=== PATIENT | male | born 1995 ===

== ENCOUNTER 2023-09-11 07:51 | Outpatient (OUT) | payer OTHER, SELFPAY ==
--- NOTE | 2023-09-11 07:55 | VEIN_ITS ---
Patient Name: MIKE JENSEN MR#: [id number] : 1995 Exam Date: 09/11/2023 Ordering Doctor: FRAN ASKEW RADIOLOGY REPORT PROCEDURE: FACILITY [facility] - OFFICE VISIT INITIAL COMPARISON: None. PROGRESS NOTES: [age] year old male who presents with a 3 year history of dilated bulging veins, muscle cramping, leg pain. The patient's left leg symptoms are worse than the right. There has been a progression of symptoms over time. This increases with prolonged standing. The patient describes an improvement with rest, elevation, exercise, and ibuprofen. The patient denies any signs and symptoms to suggest arterial ischemia. The patient describes a family history : Unknown. The patient has drinking and smoking history of occasional alcohol consumption, no tobacco use. Patient has a past medical history significant for : None pertinent. The patient denies a history of deep venous thrombus or pulmonary embolus. See separate history and physical for medication list. No prior treatment for varicose or spider veins. Current use of compression stockings. After review of nurse notes, history and physical exam I discussed at length the pathophysiology of venous hypertension and possible treatments, therapies and strategies available. We discussed at length the importance of elevating the lower extremities above the level of the heart, increased physical activity and compression stocking use. Ultrasound venous reflux study performed today was discussed at length with the patient. The report demonstrates abnormally dilated and markedly incompetent proximal left great saphenous vein with large incompetent varicosities. PHYSICAL EXAM: The right leg demonstrates no visible varicosities, no spider veins, no ulceration, no edema, no skin discoloration. The left leg demonstrates several large varicosities, no spider veins, no ulceration, no edema, no skin discoloration. Both thighs, legs and feet were symmetrically warm to the touch. Good posterior tibial and dorsalis pedis pulses were present bilaterally. VEIN/VC Facility NEW Comprehensive IMPRESSION: 1. Left great saphenous venous insufficiency 2. Left lower extremity varicose veins 3. No significant lower extremity subcutaneous edema 4. No flow significant arterial disease 5. CEAP: C2, AP, , MA PLAN: 1. Continued use of compression stockings 2. Elevated legs and increased physical activity symptomatic relief 3. Endovenous laser ablation of proximal left great saphenous vein. Nurse notes, history and physical were reviewed and confirmed, see attached forms. The nurse was present throughout the physical exam and consultation Dictated by: Elvis Lorenzo M.D. on 09/11/2023 at 09:36 Approved by: Elvis Lorenzo M.D. on 09/11/2023 at 09:45
--- NOTE | 2023-09-11 07:55 | VEIN_ITS ---
Patient Name: MIKE JENSEN MR#: [id number] : 1995 Exam Date: 09/11/2023 Ordering Doctor: FRAN ASKEW RADIOLOGY REPORT PROCEDURE: VC EXT VENOUS REFLUX LIZA LMTD COMPARISON: None. INDICATIONS: I83.813 Bilateral painful varicose veins TECHNIQUE: Duplex imaging of the lower extremity to assess the deep and superficial venous system for the presence of deep or superficial venous incompetence and to document the location and severity of disease. The study includes evaluation of the great saphenous vein (GSV), anterior accessory saphenous vein (AASV) and small saphenous vein (SSV). Patient scanned in reverse Trendelenburg and standing. FINDINGS: RIGHT LOWER EXTREMITY: Saphenofemoral Junction Reflux: Yes 3.6mm 0.8 sec GSV: Diam (mm) Reflux/ Time (sec) Proximal Thigh 1.7 No Mid Thigh N/A Distal Thigh N/A Prox Calf N/A Mid Calf N/A Saphenopopliteal Junction Reflux: 1.6mm No SSV: Proximal Calf 1.3 No Mid Calf 0.9 AASV: Not present Proximal Thigh Mid Thigh Distal Thigh Thrombi: No acute or chronic thrombus visualized Compressibility: Normal Flow: Normal Preforator: No perforators visualized. Tech Note: No incompetent veins visualized. LEFT LOWER EXTREMITY: Saphenofemoral Junction Reflux: 7.7 mm 2.1 sec GSV: Diam (mm) Reflux/Time (sec) Proximal Thigh 6.0 Yes 2.9 Mid Thigh 4.0 Yes 2.7 Distal Thigh 1.2 No Prox Calf 1.3 No Mid Calf 1.5 No Saphenopopliteal Junction Relux: 1.9 mm No SSV: Proximal Calf 1.3 No Mid Calf 1.2 No AASV: Not present Proximal Thigh Mid Thigh Distal Thigh Thrombi: No acute or chronic thrombus visualized Compressibility: Normal Flow: Deep vein reflux visualized in FV and Pop V. Hook Tender: No perforators visualized Tech Note: Incompetent SFJ and GSV. Patent varicose vein medial knee 4.2mm with 1.4s reflux. Patent varicose vein dist/med thigh 5.6mm with 1.5s reflux. Patent varicose vein mid/med thigh 7.3mm with 1.3s reflux. CONCLUSION: 1. Abnormally dilated proximal left great saphenous vein with marked reflux and extensive incompetent branches arising from the proximal segment. Dictated by: Elvis Lorenzo M.D. on 09/11/2023 at 09:06 Approved by: Elvis Lorenzo M.D. on 09/11/2023 at 09:36
== END 2023-09-11 07:52 | disposition home or self-care (01) ==
PROVIDERS: PCP Nurse Practitioner; Visit Provider Nurse Practitioner
DX: R20.0 Anesthesia of skin (principal); I83.813 Varicose veins of bilateral lower extremities with pain
CPT/HCPCS: 93970; G0463